=== PATIENT | male | born 1960 | race Caucasian/White ===

== ENCOUNTER 2016-08-21 13:16 | Emergency (ER) | payer MEDICAID ==
--- NOTE | 2016-08-21 14:45 | EDM.PDOC ---
ED HPI GENERAL MEDICAL PROBLEM - General Chief Complaint: Lower Extremity Injury/Pain Stated Complaint: LEFT KNEE PAIN Time Seen by Provider: 08/21/16 14:42 Source of Information: Reports: Patient History Limitations: Reports: No Limitations - History of Present Illness INITIAL COMMENTS - FREE TEXT/NARRATIVE: pt twisted his left knee in [employer] today, Onset: today Duration: Hour(s): Location: Reports: lower extremity, left Associated Symptoms: Reports: denies other symptoms, other (pt is also having pain the lrt knee. ) left knee Pain Score (Numeric/FACES): 9 - Related Data Allergies Allergy/AdvReac Type Severity Reaction Status Date / Time ibuprofen Allergy Hives Verified 06/07/16 14:23 naproxen Allergy Swelling Verified 06/07/16 14:23 venom-honey bee Allergy Anaphylactic Verified 06/07/16 14:23 [bee venom (honey bee)] Shock Home Meds: Home Meds Albuterol [Ventolin HFA] 1 - 2 puff IH Q4H PRN 11/05/15 [History] EPINEPHrine [Epipen 2-Moris] 1 injection IM ASDIRECTED PRN 11/05/15 [History] FLUoxetine HCl [Fluoxetine HCl] 40 mg PO DAILY 11/05/15 [History] Fluticasone/Salmeterol [Advair 100-50 Diskus] 1 puff IH BID PRN 11/05/15 [ History] Gabapentin [Gabapentin] 900 mg PO BID 11/05/15 [History] Lidocaine 5% 1 applic TOP ASDIRECTED 11/05/15 [History] Tamsulosin [Flomax] 0.4 mg PO DAILY 11/05/15 [History] Cholecalciferol (Vitamin D3) [Vitamin D3] 1 tab PO DAILY 06/07/16 [History] buPROPion HCl [Wellbutrin Xl] 1 tab PO DAILY 06/07/16 [History] Past Medical History Respiratory History: Reports: COPD Gastrointestinal History: Reports: GERD, PUD Genitourinary History: Reports: Other (see below) Other Genitourinary History: frequent urination at night without the flomax Musculoskeletal History: Reports: Back pain, chronic, Fracture Neurological History: Reports: Concussion, Head trauma, Vertigo Psychiatric History: Reports: Anxiety, Depression Hematologic History: Reports: Blood transfusion(s) Other Dermatologic History: skin grafts - Infectious Disease History Infectious Disease History: Reports: Chicken pox - Past Surgical History HEENT Surgical History: Reports: Tonsillectomy Neurological Surgical History: Reports: Lumbar spine Other Neurological Surgeries/Procedures: states nerves removed in right lower back Musculoskeletal Surgical History: Reports: Knee replacement Other Musculoskeletal Surgeries/Procedures:: right femur reconstruction, tib/ fib reconstruction (r), left foot- bone graph, pins, plates, Social & Family History - Tobacco Use Smoking Status *Q: Light Tobacco Smoker Years of Tobacco use: 30 Packs/Tins Daily: 0.3 Used Tobacco, but Quit: No Second Hand Smoke Exposure: Yes - Caffeine Use Caffeine Use: Reports: Soda - Alcohol Use Days Per Week of Alcohol Use: 0 - Recreational Drug Use Recreational Drug Use: No Review of Systems - Review of Systems Review Of Systems: See Below Constitutional: Reports: No Symptoms Eyes: Reports: No Symptoms Ears: Reports: No Symptoms Nose: Reports: No Symptoms Mouth/Throat: Reports: No Symptoms Respiratory: Reports: No Symptoms Cardiovascular: Reports: No Symptoms GI/Abdominal: Reports: No Symptoms Musculoskeletal: Reports: Other (pt has new pain in the inner aspect of the left knee. He has not noted swelling. ) Trauma Exam - Physical Exam Exam: See Below Text/Narrative:: Pt was at the grocery store and he twisted his left knee wrong and he developed acute pain in the inner aspect of the left knee. He has had menicus problems with the rt knee. Exam Limited By: No Limitations General Appearance: Reports: Alert, Anxious Head: Reports: Atraumatic Eyes: Bilateral Eye: EOMI, Normal Inspection, PERRL Ears: Reports: Normal External Exam Nose: Reports: Normal Inspection Throat/Mouth: Reports: Normal Inspection Neck: Reports: Non-Tender Respiratory Exam: Reports: No Respiratory Distress Cardiovascular: Reports: Regular Rate, Rhythm GI/Abdominal: Reports: Soft, Non-Tender Extremities: Other (pt has a left knee whuich is painful on the inner aspect. There is no swelling or bruising present. ) Neurologic: Reports: Alert Course - Vital Signs Last Recorded V/S: Last Vital Signs Temp 34.5 C L 08/21/16 13:36 Pulse 80 08/21/16 15:36 Resp 20 08/21/16 15:36 BP 110/79 08/21/16 15:36 Pulse Ox 97 08/21/16 15:36 - Orders/Labs/Meds Orders: Active Orders 24 hr Category Date Time Status Knee Min 4V Lt [CR] Stat Exams 08/21/16 14:39 Taken Acetaminophen [Tylenol Bulk Bottle] Med 08/21/16 15:38 Once 650 mg PO NOW ONE - Re-Assessments/Exams Free Text/Narrative Re-Assessment/Exam: 08/21/16 15:46 xray was obtained which revealed a large bone island in the proximal tibia. This waS INTERPRETED BY THE RADIOLOGIST AND HE FELT THIS LOOKED LIKE A BENIGN BONE ISLAND. tHE PT MAY NEED AN mri IF PAIN IS PERSISTENT. Departure - Departure Time of Disposition: 15:48 Disposition: Home, Self-Care 01 Condition: fair Clinical Impression: Soft tissue injury of knee - Discharge Information Forms: ED Department Discharge Care Plan Goals: XRAYS TO BE SENT TO [facility], -- APPT WITH HIM TOMORROW, ICE TO THE LEFT KNEE, TRAMODOL 50MG Q6H PRN FOR PAIN. - My Orders Last 24 Hours: My Active Orders 08/21/16 14:39 Knee Min 4V Lt [CR] Stat 08/21/16 15:38 Acetaminophen [Tylenol Bulk Bottle] 650 mg PO NOW ONE - Assessment/Plan Last 24 Hours: My Active Orders 08/21/16 14:39 Knee Min 4V Lt [CR] Stat 08/21/16 15:38 Acetaminophen [Tylenol Bulk Bottle] 650 mg PO NOW ONE
[2016-08-21 15:37] VITALS: BP 110/79
[2016-08-21] MEDS ORDERED: Acetaminophen 325 MG Tab, 50 Tab Bulk Bottle PO ONE (15:38)
[2016-08-21] MEDS ORDERED: Acetaminophen 325 MG Tab ONE (15:46)
[2016-08-21] MEDS ORDERED: Acetaminophen 325 MG Tab PO ONE (15:49)
== END 2016-08-21 16:03 | disposition home or self-care (01) ==
LOC: JP.ED 13:16
DX: S89.92XA Unspecified injury of left lower leg, initial encounter (principal); J44.9 Chronic obstructive pulmonary disease, unspecified; K21.9 Gastro-esophageal reflux disease without esophagitis; F41.9 Anxiety disorder, unspecified; F32.9 Major depressive disorder, single episode, unspecified; F17.210 Nicotine dependence, cigarettes, uncomplicated; Z79.899 Other long term (current) drug therapy; Z98.890 Other specified postprocedural states; Z91.030 Bee allergy status; Z88.6 Allergy status to analgesic agent; X50.1XXA Overexertion from prolonged static or awkward postures, initial encounter
CPT/HCPCS: 73564; 99284; A9270

== ENCOUNTER 2017-05-23 15:15 | Emergency (ER) | payer MEDICAID ==
[2017-05-23 16:49] VITALS: BP 105/68
[2017-05-23] MEDS ORDERED: HYDROmorphone 1 MG/ML Syringe IM ONE (17:19)
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
== END 2017-05-23 17:48 | disposition home or self-care (01) ==
LOC: JP.ED 15:15
DX: M54.2 Cervicalgia (principal); Z88.6 Allergy status to analgesic agent; Z88.8 Allergy status to other drugs, medicaments and biological substances; Z91.030 Bee allergy status; J44.9 Chronic obstructive pulmonary disease, unspecified; F32.9 Major depressive disorder, single episode, unspecified; F41.9 Anxiety disorder, unspecified; Z72.0 Tobacco use
CPT/HCPCS: 96372; 99283; J1170

== ENCOUNTER 2017-07-21 07:07 | Emergency (ER) | payer MEDICAID ==
[2017-07-21 07:35] VITALS: BP 125/87
--- NOTE | 2017-07-21 07:46 | EDM.PDOC ---
ED HPI GENERAL MEDICAL PROBLEM - General Chief Complaint: Eye Problems Stated Complaint: CONTACT STUCK IN RIGHT EYE Time Seen by Provider: 07/21/17 07:30 Source of Information: Reports: Patient History Limitations: Reports: No Limitations - History of Present Illness INITIAL COMMENTS - FREE TEXT/NARRATIVE: 57-year-old male with right eye pain for the last several hours after having a contact "stuck" on his right eye. He made several attempts at removing the contact this morning but just couldn't quite get it out. He knows it still in his eye because his vision is clear. Location: Reports: Other (Right eye) Severity: Moderate Right Eye Pain Score (Numeric/FACES): 10 - Related Data Allergies Allergy/AdvReac Type Severity Reaction Status Date / Time ibuprofen Allergy Hives Verified 06/07/16 14:23 naproxen Allergy Swelling Verified 06/07/16 14:23 venom-honey bee Allergy Anaphylactic Verified 06/07/16 14:23 [bee venom (honey bee)] Shock Home Meds: Home Meds Albuterol [Ventolin HFA] 1 - 2 puff IH Q4H PRN 11/05/15 [History] EPINEPHrine [Epipen 2-Moris] 1 injection IM ASDIRECTED PRN 11/05/15 [History] Fluticasone/Salmeterol [Advair 100-50 Diskus] 1 puff IH BID PRN 11/05/15 [ History] Gabapentin 900 mg PO BID 11/05/15 [History] Lidocaine 5% 1 applic TOP ASDIRECTED 11/05/15 [History] Tamsulosin [Flomax] 0.4 mg PO DAILY 11/05/15 [History] Cholecalciferol (Vitamin D3) [Vitamin D3] 1 tab PO DAILY 06/07/16 [History] Diazepam [Valium] 10 mg PO ASDIRECTED PRN 05/23/17 [History] Lisdexamfetamine [Vyvanse] 30 mg PO DAILY 05/23/17 [History] hydrOXYzine Pamoate [Hydroxyzine Pamoate] 50 mg PO ASDIRECTED PRN 05/23/17 [ History] Past Medical History Respiratory History: Reports: COPD Gastrointestinal History: Reports: GERD, PUD Genitourinary History: Reports: Other (See Below) Other Genitourinary History: frequent urination at night without the flomax Musculoskeletal History: Reports: Back Pain, Chronic, Fracture Neurological History: Reports: Concussion, Head Trauma, Vertigo Psychiatric History: Reports: Anxiety, Depression Hematologic History: Reports: Blood Transfusion(s) Other Dermatologic History: skin grafts - Infectious Disease History Infectious Disease History: Reports: Chicken Pox - Past Surgical History HEENT Surgical History: Reports: Tonsillectomy Neurological Surgical History: Reports: Lumbar Spine Musculoskeletal Surgical History: Reports: Knee Replacement Social & Family History - Tobacco Use Smoking Status *Q: Current Every Day Smoker Years of Tobacco use: 30 Packs/Tins Daily: 0.5 Used Tobacco, but Quit: No Second Hand Smoke Exposure: Yes - Caffeine Use Caffeine Use: Reports: Soda - Alcohol Use Days Per Week of Alcohol Use: 0 - Recreational Drug Use Recreational Drug Use: No ED ROS GENERAL - Review of Systems Review Of Systems: See Below Constitutional: Denies: Fever, Chills Respiratory: Denies: Shortness of Breath GI/Abdominal: Denies: Nausea, Vomiting Musculoskeletal: Reports: Other (Going to an orthopedic consult later this morning for chronic leg pain) Neurological: Denies: Headache ED EXAM GENERAL W FULL EYE - Physical Exam Exam: See Below Exam Limited By: No Limitations General Appearance: Alert, Mild Distress (Looks uncomfortable) Eye Exam: Right Eye: Conjunctival Injection (He has marked conjunctival injection of the right eye), Other (Exam of the right eye with fluorescein drops reveals uptake of the conjunctiva but not of the sclera and there appears to be no foreign body), Bilateral Eye: PERRL Eyelids: Right: Edema (Upper and lower eyelid is edematous and erythematous) Conjunctiva & Sclera: Right: Conjunctival Edema Cornea Exam: Right: Normal Appearance Course - Vital Signs Last Recorded V/S: Last Vital Signs Temp 96.3 F 07/21/17 07:29 Pulse 89 07/21/17 07:29 Resp 16 07/21/17 07:29 BP 125/87 07/21/17 07:29 Pulse Ox 99 07/21/17 07:29 - Re-Assessments/Exams Free Text/Narrative Re-Assessment/Exam: 07/21/17 08:05 After fluorescein staining did not show any obvious foreign body, the patient was examined with a slit lamp which again showed no contact on his cornea. He insisted it was there however because his vision was clear, however he had a contact in his left eye and when I covered his left eye his vision was blurry. I do not believe the contact is on the cornea, nor do I believe the contact is under an eyelid. After his orthopedic consultation this morning is going to go see his eye doctor. Departure - Departure Time of Disposition: 07:49 Disposition: Home, Self-Care 01 Condition: Good Clinical Impression: Conjunctivitis Qualifiers: Conjunctivitis type: acute Acute conjunctivitis type: unspecified Laterality: right Qualified Code(s): H10.31 - Unspecified acute conjunctivitis, right eye - Discharge Information Instructions: Eye Foreign Body, [id number] Referrals: Reshma Bobby MD [Primary Care Provider] - Forms: ED Department Discharge Care Plan Goals: Recheck later today with the eye department, you may need some antibiotic drops or other treatment.
== END 2017-07-21 07:49 | disposition home or self-care (01) ==
LOC: JP.ED 07:07
DX: H10.31 Unspecified acute conjunctivitis, right eye (principal); F17.210 Nicotine dependence, cigarettes, uncomplicated; Z88.6 Allergy status to analgesic agent; Z91.030 Bee allergy status; Z79.899 Other long term (current) drug therapy
CPT/HCPCS: 99283

== ENCOUNTER 2017-08-14 21:37 | Emergency (ER) | payer MEDICAID ==
[2017-08-14 22:01] VITALS: BP 136/99
[2017-08-14] MEDS ORDERED: Ketorolac 60 MG/2 ML SDV IM ONE (22:27)
--- NOTE | 2017-08-14 23:07 | EDM.PDOC ---
ED HPI GENERAL MEDICAL PROBLEM - General Chief Complaint: Allergic Reaction Stated Complaint: REACTION TO EPI PEN Time Seen by Provider: 08/14/17 22:15 Source of Information: Reports: Patient History Limitations: Reports: No Limitations - History of Present Illness INITIAL COMMENTS - FREE TEXT/NARRATIVE: 57-year-old male was in with right leg pain after injecting an EpiPen into his right lateral thigh. He thought he "might have gotten stung" so used his EpiPen , and now it feels swollen and sore. Onset: Sudden Duration: Hour(s): (Within the last half hour) Location: Reports: Lower Extremity, Right Severity: Moderate right thigh Pain Score (Numeric/FACES): 10 - Related Data Allergies Allergy/AdvReac Type Severity Reaction Status Date / Time ibuprofen Allergy Hives Verified 08/14/17 22:06 naproxen Allergy Swelling Verified 08/14/17 22:06 venom-honey bee Allergy Anaphylactic Verified 08/14/17 22:06 [bee venom (honey bee)] Shock Home Meds: Home Meds Albuterol [Ventolin HFA] 1 - 2 puff IH Q4H PRN 11/05/15 [History] EPINEPHrine [Epipen 2-Moris] 1 injection IM ASDIRECTED PRN 11/05/15 [History] Fluticasone/Salmeterol [Advair 100-50 Diskus] 1 puff IH BID PRN 11/05/15 [ History] Gabapentin 900 mg PO BID 11/05/15 [History] Lidocaine 5% 1 applic TOP ASDIRECTED 11/05/15 [History] Tamsulosin [Flomax] 0.4 mg PO DAILY 11/05/15 [History] Cholecalciferol (Vitamin D3) [Vitamin D3] 1 tab PO DAILY 06/07/16 [History] Diazepam [Valium] 10 mg PO ASDIRECTED PRN 05/23/17 [History] Lisdexamfetamine [Vyvanse] 30 mg PO DAILY 05/23/17 [History] hydrOXYzine Pamoate [Hydroxyzine Pamoate] 50 mg PO ASDIRECTED PRN 05/23/17 [ History] DULoxetine HCl [Duloxetine HCl] 1 tab PO DAILY 08/14/17 [History] Metoprolol Succinate 1 tab PO DAILY 08/14/17 [History] Past Medical History Cardiovascular History: Reports: High Cholesterol, Hypertension Respiratory History: Reports: COPD Gastrointestinal History: Reports: GERD, PUD Genitourinary History: Reports: Other (See Below) Other Genitourinary History: frequent urination at night without the flomax Musculoskeletal History: Reports: Back Pain, Chronic, Fracture Neurological History: Reports: Concussion, Head Trauma, Vertigo Psychiatric History: Reports: Anxiety, Depression Hematologic History: Reports: Blood Transfusion(s) Other Dermatologic History: skin grafts - Infectious Disease History Infectious Disease History: Reports: Chicken Pox - Past Surgical History HEENT Surgical History: Reports: Tonsillectomy Neurological Surgical History: Reports: Lumbar Spine Musculoskeletal Surgical History: Reports: Knee Replacement Social & Family History - Tobacco Use Smoking Status *Q: Current Every Day Smoker Years of Tobacco use: 40 Packs/Tins Daily: 0.2 Used Tobacco, but Quit: No Second Hand Smoke Exposure: Yes - Caffeine Use Caffeine Use: Reports: Soda - Alcohol Use Days Per Week of Alcohol Use: 0 - Recreational Drug Use Recreational Drug Use: No ED ROS ALLERGIC REACTION - Review of Systems Review Of Systems: See Below Constitutional: Denies: Fever Respiratory: Denies: Shortness of Breath Cardiovascular: Denies: Chest Pain GI/Abdominal: Denies: Nausea, Vomiting Skin: Reports: Erythema ED EXAM GENERAL NO PERIP PULSE - Physical Exam Exam: See Below Exam Limited By: No Limitations General Appearance: Alert, No Apparent Distress, Anxious Respiratory/Chest: No Respiratory Distress, Lungs Clear Cardiovascular: Regular Rate, Rhythm Extremities: Other (Exam of the right leg does show a well-healed surgical scar along the lateral right thigh. There is some firmness to palpation, he may have been caused a muscle cramp from the injection, no significant swelling or fluctuance such as a hematoma.) Course - Vital Signs Last Recorded V/S: Last Vital Signs Temp 96.5 F 08/14/17 22:04 Pulse 53 L 08/14/17 22:04 Resp 16 08/14/17 22:04 BP 136/99 H 08/14/17 22:04 Pulse Ox 97 08/14/17 22:04 - Orders/Labs/Meds Meds: Medications Discontinued Medications Generic Name Dose Route Start Last Admin Trade Name Freq PRN Reason Stop Dose Admin Ketorolac Tromethamine 60 mg 08/14/17 22:27 08/14/17 22:33 Toradol IM 08/14/17 22:28 60 mg ONETIME ONE Administration - Re-Assessments/Exams Free Text/Narrative Re-Assessment/Exam: 08/14/17 23:06 Patient was given 60 mg of Toradol and encouraged to continue wrapping and icing. He ring the appiah several times looking for something stronger for pain. Encouraged him to just let the medicine wear off, increase activity as tolerated and recheck tomorrow if there is still significant swelling or bruising. Departure - Departure Time of Disposition: 23:15 Disposition: Home, Self-Care 01 Condition: Good Clinical Impression: Pain of right lower extremity - Discharge Information Instructions: Muscle Pain, Adult Referrals: Reshma Bobby MD [Primary Care Provider] - Forms: ED Department Discharge Care Plan Goals: Continue with wrapping and icing this evening and increase activity as tolerated. Recheck in the next 1-2 days of significant swelling persists or there is significant bruising.
== END 2017-08-14 23:18 | disposition home or self-care (01) ==
LOC: JP.ED 21:37
DX: M79.651 Pain in right thigh (principal); I10 Essential (primary) hypertension; E78.00 Pure hypercholesterolemia, unspecified; J44.9 Chronic obstructive pulmonary disease, unspecified; F41.9 Anxiety disorder, unspecified; F32.9 Major depressive disorder, single episode, unspecified; F17.210 Nicotine dependence, cigarettes, uncomplicated; Z79.899 Other long term (current) drug therapy; Z88.6 Allergy status to analgesic agent; Z91.030 Bee allergy status; Z88.8 Allergy status to other drugs, medicaments and biological substances
CPT/HCPCS: 96372; 99283; J1885

== ENCOUNTER 2017-08-15 03:57 | Emergency (ER) | payer MEDICAID | END 2017-08-15 04:10 | disposition left against medical advice (07) | LOC: JP.ED 03:57 | DX: Z53.21 Procedure and treatment not carried out due to patient leaving prior to being seen by health care provider (principal) ==

== ENCOUNTER 2017-08-15 13:06 | Emergency (ER) | payer MEDICAID ==
[2017-08-15 13:41] VITALS: BP 141/76
[2017-08-15] MEDS ORDERED: Acetaminophen/oxyCODONE 325-5 MG Tab PO ONE (14:45)
--- NOTE | 2017-08-15 14:47 | EDM.PDOC ---
ED HPI GENERAL MEDICAL PROBLEM - General Chief Complaint: General Stated Complaint: RECHECK FROM BUG BITE 08/14/17 Time Seen by Provider: 08/15/17 14:47 Source of Information: Reports: Patient History Limitations: Reports: No Limitations - History of Present Illness INITIAL COMMENTS - FREE TEXT/NARRATIVE: 2 days ago he was stung by a bee in the rt lateral thigh. The thigh is now quite firm and is very tender. he Had difficulty walking on the leg. Onset: Gradual, Other ( last 2 daYS WORSE TODAY. ) Duration: Hour(s): Location: Reports: Lower Extremity, Right Associated Symptoms: Reports: No Other Symptoms Right Leg Pain Score (Numeric/FACES): 10 - Related Data Allergies Allergy/AdvReac Type Severity Reaction Status Date / Time ibuprofen Allergy Hives Verified 08/15/17 04:04 naproxen Allergy Swelling Verified 08/15/17 04:04 venom-honey bee Allergy Anaphylactic Verified 08/15/17 04:04 [bee venom (honey bee)] Shock Home Meds: Home Meds Albuterol [Ventolin HFA] 1 - 2 puff IH Q4H PRN 11/05/15 [History] EPINEPHrine [Epipen 2-Moris] 1 injection IM ASDIRECTED PRN 11/05/15 [History] Fluticasone/Salmeterol [Advair 100-50 Diskus] 1 puff IH BID PRN 11/05/15 [ History] Gabapentin 900 mg PO BID 11/05/15 [History] Lidocaine 5% 1 applic TOP ASDIRECTED 11/05/15 [History] Tamsulosin [Flomax] 0.4 mg PO DAILY 11/05/15 [History] Cholecalciferol (Vitamin D3) [Vitamin D3] 1 tab PO DAILY 06/07/16 [History] Diazepam [Valium] 10 mg PO ASDIRECTED PRN 05/23/17 [History] Lisdexamfetamine [Vyvanse] 30 mg PO DAILY 05/23/17 [History] hydrOXYzine Pamoate [Hydroxyzine Pamoate] 50 mg PO ASDIRECTED PRN 05/23/17 [ History] DULoxetine HCl [Duloxetine HCl] 1 tab PO DAILY 08/14/17 [History] Metoprolol Succinate 1 tab PO DAILY 08/14/17 [History] Diazepam [Valium] 10 mg PO ASDIRECTED PRN 08/15/17 [History] Past Medical History Cardiovascular History: Reports: High Cholesterol, Hypertension Respiratory History: Reports: COPD Gastrointestinal History: Reports: GERD, PUD Genitourinary History: Reports: Other (See Below) Other Genitourinary History: frequent urination at night without the flomax Musculoskeletal History: Reports: Back Pain, Chronic, Fracture Neurological History: Reports: Concussion, Head Trauma, Vertigo Psychiatric History: Reports: Anxiety, Depression Hematologic History: Reports: Blood Transfusion(s) Other Dermatologic History: skin grafts - Infectious Disease History Infectious Disease History: Reports: Chicken Pox - Past Surgical History HEENT Surgical History: Reports: Tonsillectomy Neurological Surgical History: Reports: Lumbar Spine Musculoskeletal Surgical History: Reports: Knee Replacement Social & Family History - Tobacco Use Smoking Status *Q: Light Tobacco Smoker Years of Tobacco use: 30 Packs/Tins Daily: 0.3 Used Tobacco, but Quit: No Second Hand Smoke Exposure: Yes - Caffeine Use Caffeine Use: Reports: Soda - Alcohol Use Days Per Week of Alcohol Use: 0 - Recreational Drug Use Recreational Drug Use: No ED ROS GENERAL - Review of Systems Review Of Systems: See Below Constitutional: Reports: No Symptoms HEENT: Reports: No Symptoms Respiratory: Reports: No Symptoms Cardiovascular: Reports: No Symptoms Endocrine: Reports: No Symptoms GI/Abdominal: Reports: No Symptoms : Reports: No Symptoms ED EXAM, GENERAL - Physical Exam Exam: See Below Free Text/Narrative:: PT ARRIVED WITH PERSISTENT SWELLING ND PAIN IN THE RT THIGH. iT IS MOST TENDER RT NEAR WHERE HE HAD THE BEE STING. Exam Limited By: No Limitations General Appearance: Alert, Moderate Distress Extremities: Other ( RT THIGH DOES TIMBO VERY FIRM. iT IS NOT RED AND HOT. uS DID LOOK AT THE THIGH TO SEE IF THERE WAS A HMATOMA CLOSE O WHERE HE GOT THE BITE. tHERE WAS A SMALL HEMATOMA CLOSE TO WHERE HE HAD THE SHOT. iT WAS THOUGHT THAT THE SWELLING OR FIRMNESS IS RELATED TO A REACTION TO THE BEE STING. ) Neurological: Alert, Oriented Course - Vital Signs Last Recorded V/S: Last Vital Signs Temp 35.7 C 08/15/17 13:41 Pulse 105 H 08/15/17 13:41 Resp 18 08/15/17 13:41 BP 141/76 H 08/15/17 13:41 Pulse Ox 98 08/15/17 13:41 - Orders/Labs/Meds Orders: Active Orders 24 hr Category Date Time Status Extremity Non Vascular Rt [US] Stat Exams 08/15/17 14:46 Ordered Triamcinolone Acetonide [Kenalog-40] Med 08/15/17 16:03 Once 60 mg INJECT ASDIRECTED ONE Labs: Laboratory Tests 08/15/17 08/15/17 08/15/17 Range/Units 15:03 15:03 15:23 WBC 6.9 (4.5-11.0) K/uL RBC 4.45 (4.30-5.90) M/uL Hgb 12.7 (12.0-15.0) g/dL Hct 37.8 L (40.0-54.0) % MCV 85 (80-98) fL MCH 29 (27-31) pg MCHC 34 (32-36) % Plt Count 266 (150-400) K/uL Neut % (Auto) 63 (36-66) % Lymph % (Auto) 22 L (24-44) % Pope % (Auto) 12 H (2-6) % Eos % (Auto) 3 (2-4) % Baso % (Auto) 0 (0-1) % Sodium 137 L (140-148) mmol/L Potassium 3.7 (3.6-5.2) mmol/L Chloride 102 (100-108) mmol/L Carbon Dioxide 26 (21-32) mmol/L Anion Gap 12.7 (5.0-14.0) mmol/L BUN 22 H (7-18) mg/dL Creatinine 1.3 (0.8-1.3) mg/dL Est Cr Clr Drug Dosing 62.12 mL/min Estimated GFR (MDRD) 57 L (>60) Glucose 93 (74-106) mg/dL Calcium 9.0 (8.5-10.1) mg/dL Total Bilirubin 0.9 (0.2-1.0) mg/dL AST 21 (15-37) U/L ALT 22 (12-78) U/L Alkaline Phosphatase 118 H (46-116) U/L C-Reactive Protein 0.50 H (0.0-0.3) mg/dL Total Protein 6.9 (6.4-8.2) g/dL Albumin 3.8 (3.4-5.0) g/dL Globulin 3.1 (2.3-3.5) g/dL Albumin/Globulin Ratio 1.2 (1.2-2.2) Meds: Medications Discontinued Medications Generic Name Dose Route Start Last Admin Trade Name Temo PRN Reason Stop Dose Admin Oxycodone/Acetaminophen 1 tab 08/15/17 14:45 08/15/17 14:53 Percocet 325-5 Mg PO 08/15/17 14:46 1 tab ONETIME ONE Administration - Re-Assessments/Exams Free Text/Narrative Re-Assessment/Exam: 08/15/17 16:10 pT WAS GIVEN KENALOG 60MG IM TO BLOCK THE SWELLING AND REACTION FROM THE STING. hE HAD NO HEMATOMA THERE FROM THE BEE STING. Departure - Departure Time of Disposition: 16:11 Disposition: Home, Self-Care 01 Condition: Fair Clinical Impression: Swelling at injection site, Bug bite - Discharge Information Referrals: Reshma Rasheed MD [Primary Care Provider] - Forms: ED Department Discharge Care Plan Goals: TUB SOAK ONCE OR TWICE A DAY, USE A COOL PACK, KEEP APPT WITH dR Joe Rasheed WHICH HE ALREADY HAS FOR THURSDAY, [place] 5/325 Q6H #8 - My Orders Last 24 Hours: My Active Orders 08/15/17 14:46 Extremity Non Vascular Rt [US] Stat 08/15/17 16:03 Triamcinolone Acetonide [Kenalog-40] 60 mg INJECT ASDIRECTED ONE - Assessment/Plan Last 24 Hours: My Active Orders 08/15/17 14:46 Extremity Non Vascular Rt [US] Stat 08/15/17 16:03 Triamcinolone Acetonide [Kenalog-40] 60 mg INJECT ASDIRECTED ONE
[2017-08-15] MEDS ORDERED: Triamcinolone Acetonide 40 MG/ML 1 ML MDV INJECT ONE (16:03)
--- NOTE | 2017-08-17 09:05 | US ---
Extremity Non Vascular Rt INDICATION: severe pain in the rt thigh. COMPARISON: None FINDINGS: Ultrasound of the right upper thigh demonstrates a complex masslike area measuring approxim ately 2.6 cm. This appears to be intramuscular and may represent an intramuscular hematoma given clin ical history. Abscess not excluded. Intramuscular mass not excluded. Recommend follow-up exam to conf irm resolution of this finding.
== END 2017-08-15 16:34 | disposition home or self-care (01) ==
LOC: JP.ED 13:06
DX: T63.441A Toxic effect of venom of bees, accidental (unintentional), initial encounter (principal); Z88.6 Allergy status to analgesic agent; Z91.030 Bee allergy status; Z88.8 Allergy status to other drugs, medicaments and biological substances; Z79.899 Other long term (current) drug therapy; I10 Essential (primary) hypertension; E78.00 Pure hypercholesterolemia, unspecified; J44.9 Chronic obstructive pulmonary disease, unspecified; F17.210 Nicotine dependence, cigarettes, uncomplicated; W57.XXXA Bitten or stung by nonvenomous insect and other nonvenomous arthropods, initial encounter
CPT/HCPCS: 36415; 76881; 80053; 85025; 86140; 99284; A9270; J3301

== ENCOUNTER 2017-09-20 05:36 | Emergency (ER) | payer MEDICAID ==
[2017-09-20 05:48] VITALS: BP 152/91
--- NOTE | 2017-09-20 06:14 | EDM.PDOC ---
ED HPI GENERAL MEDICAL PROBLEM - General Chief Complaint: Lower Extremity Injury/Pain Stated Complaint: GROIN PAIN Time Seen by Provider: 09/20/17 06:00 Source of Information: Reports: Patient History Limitations: Reports: No Limitations - History of Present Illness INITIAL COMMENTS - FREE TEXT/NARRATIVE: 57-year-old male developed a bruised area in the right groin that he wants looked at. It's tender but not significantly painful, it's not swollen, he does not know what trauma may have caused it. He is not on anticoagulants. Onset: Sudden (Showed up 2 days ago) Location: Reports: Lower Extremity, Right Severity: Mild Right Leg Pain Score (Numeric/FACES): 10 - Related Data Allergies Allergy/AdvReac Type Severity Reaction Status Date / Time ibuprofen Allergy Hives Verified 09/20/17 05:48 naproxen Allergy Swelling Verified 09/20/17 05:48 venom-honey bee Allergy Anaphylactic Verified 09/20/17 05:48 [bee venom (honey bee)] Shock Home Meds: Home Meds Albuterol [Ventolin HFA] 1 - 2 puff IH Q4H PRN 11/05/15 [History] EPINEPHrine [Epipen 2-Moris] 1 injection IM ASDIRECTED PRN 11/05/15 [History] Fluticasone/Salmeterol [Advair 100-50 Diskus] 1 puff IH BID PRN 11/05/15 [ History] Gabapentin 900 mg PO BID 11/05/15 [History] Lidocaine 5% 1 applic TOP ASDIRECTED 11/05/15 [History] Tamsulosin [Flomax] 0.4 mg PO DAILY 11/05/15 [History] Cholecalciferol (Vitamin D3) [Vitamin D3] 1 tab PO DAILY 06/07/16 [History] Lisdexamfetamine [Vyvanse] 30 mg PO DAILY 05/23/17 [History] hydrOXYzine Pamoate [Hydroxyzine Pamoate] 50 mg PO ASDIRECTED PRN 05/23/17 [ History] DULoxetine HCl [Duloxetine HCl] 1 tab PO DAILY 08/14/17 [History] Metoprolol Succinate 1 tab PO DAILY 08/14/17 [History] Diazepam [Valium] 10 mg PO ASDIRECTED PRN 08/15/17 [History] DULoxetine [Cymbalta] 1 tab PO DAILY 09/20/17 [History] Past Medical History Cardiovascular History: Reports: High Cholesterol, Hypertension Respiratory History: Reports: COPD Gastrointestinal History: Reports: GERD, PUD Genitourinary History: Reports: Other (See Below) Other Genitourinary History: frequent urination at night without the flomax Musculoskeletal History: Reports: Back Pain, Chronic, Fracture Neurological History: Reports: Concussion, Head Trauma, Vertigo Psychiatric History: Reports: Anxiety, Depression Hematologic History: Reports: Blood Transfusion(s) Other Dermatologic History: skin grafts - Infectious Disease History Infectious Disease History: Reports: Chicken Pox - Past Surgical History HEENT Surgical History: Reports: Tonsillectomy Neurological Surgical History: Reports: Lumbar Spine Musculoskeletal Surgical History: Reports: Knee Replacement Social & Family History - Family History Family Medical History: Noncontributory - Tobacco Use Smoking Status *Q: Former Smoker Used Tobacco, but Quit: Yes Month/Year Tobacco Last Used: august - Caffeine Use Caffeine Use: Reports: Soda - Recreational Drug Use Recreational Drug Use: No Review of Systems - Review of Systems Review Of Systems: See Below Constitutional: Denies: Fever Respiratory: Denies: Shortness of Breath Cardiovascular: Denies: Chest Pain GI/Abdominal: Denies: Abdominal Pain Skin: Reports: Bruising ED EXAM, GENERAL - Physical Exam Exam: See Below Exam Limited By: No Limitations General Appearance: Alert, No Apparent Distress Respiratory/Chest: No Respiratory Distress Extremities: Other (Patient has an area of bruising in the right groin approximately 6 x 4 cm. It's moderately tender to palpation but not firm, fluctuant, and appears just to be cutaneous bruising and not a hematoma.) Course - Vital Signs Last Recorded V/S: Last Vital Signs Temp 96.7 F 09/20/17 05:46 Pulse 103 H 09/20/17 05:46 Resp 20 09/20/17 05:46 BP 152/91 H 09/20/17 05:46 Pulse Ox 96 09/20/17 05:46 - Re-Assessments/Exams Free Text/Narrative Re-Assessment/Exam: 09/20/17 06:11 Patient was reassured. If it's worsening he'll have it rechecked. Continue on current medications. Departure - Departure Time of Disposition: 06:19 Disposition: Home, Self-Care 01 Condition: Good Clinical Impression: Spontaneous ecchymosis - Discharge Information Instructions: Contusion, [id number] Referrals: Reshma Bobby MD [Primary Care Provider] - Forms: ED Department Discharge Care Plan Goals: Continue with observation of the area, and activity as tolerated. Recheck in the next 48-72 hours if the area is worsening or becoming more painful.
== END 2017-09-20 06:19 | disposition home or self-care (01) ==
LOC: JP.ED 05:36
DX: S30.1XXA Contusion of abdominal wall, initial encounter (principal); I10 Essential (primary) hypertension; E78.00 Pure hypercholesterolemia, unspecified; J44.9 Chronic obstructive pulmonary disease, unspecified; K21.9 Gastro-esophageal reflux disease without esophagitis; F41.9 Anxiety disorder, unspecified; F32.9 Major depressive disorder, single episode, unspecified; Z87.891 Personal history of nicotine dependence; Z79.899 Other long term (current) drug therapy; Z88.6 Allergy status to analgesic agent; Z91.040 Latex allergy status; Z88.8 Allergy status to other drugs, medicaments and biological substances; X58.XXXA Exposure to other specified factors, initial encounter
CPT/HCPCS: 99283

== ENCOUNTER 2018-01-03 09:37 | Emergency (ER) | payer MEDICAID ==
[2018-01-03] MEDS ORDERED: Proparacaine 0.5% Ophth Soln 15 ML Bottle EYEBOTH STA (10:45)
--- NOTE | 2018-01-03 11:14 | EDM.PDOC ---
ED HPI GENERAL MEDICAL PROBLEM - General Chief Complaint: Eye Problems Stated Complaint: LEFT EYE REDNESS Time Seen by Provider: 01/03/18 10:43 Source of Information: Reports: Patient, RN Notes Reviewed History Limitations: Reports: No Limitations - History of Present Illness INITIAL COMMENTS - FREE TEXT/NARRATIVE: 57-year-old gentleman presents to emergency department white with left thigh pain, he does wear extended wear contacts he states the pain developed over the last 24 hours he has significant tearing and then I with nasal congestion and is unable to complete the eye chart. He denies any exposures to foreign bodies that he is aware of - Related Data Allergies Allergy/AdvReac Type Severity Reaction Status Date / Time ibuprofen Allergy Hives Verified 09/20/17 05:48 naproxen Allergy Swelling Verified 09/20/17 05:48 venom-honey bee Allergy Anaphylactic Verified 09/20/17 05:48 [bee venom (honey bee)] Shock Home Meds: Home Meds Albuterol [Ventolin HFA] 1 - 2 puff IH Q4H PRN 11/05/15 [History] EPINEPHrine [Epipen 2-Moris] 1 injection IM ASDIRECTED PRN 11/05/15 [History] Fluticasone/Salmeterol [Advair 100-50 Diskus] 1 puff IH BID PRN 11/05/15 [ History] Gabapentin 900 mg PO BID 11/05/15 [History] Lidocaine 5% 1 applic TOP ASDIRECTED 11/05/15 [History] Tamsulosin [Flomax] 0.4 mg PO DAILY 11/05/15 [History] Cholecalciferol (Vitamin D3) [Vitamin D3] 1 tab PO DAILY 06/07/16 [History] Lisdexamfetamine [Vyvanse] 30 mg PO DAILY 05/23/17 [History] hydrOXYzine pamoate [Hydroxyzine Pamoate] 50 mg PO ASDIRECTED PRN 05/23/17 [ History] DULoxetine HCl [Duloxetine HCl] 120 mg PO DAILY 08/14/17 [History] Metoprolol Succinate 50 mg PO DAILY 08/14/17 [History] diazePAM [Valium] 10 mg PO ASDIRECTED PRN 08/15/17 [History] Past Medical History Cardiovascular History: Reports: High Cholesterol, Hypertension Respiratory History: Reports: COPD Gastrointestinal History: Reports: GERD, PUD Genitourinary History: Reports: Other (See Below) Other Genitourinary History: frequent urination at night without the flomax Musculoskeletal History: Reports: Back Pain, Chronic, Fracture Neurological History: Reports: Concussion, Head Trauma, Vertigo Psychiatric History: Reports: Anxiety, Depression Hematologic History: Reports: Blood Transfusion(s) Other Dermatologic History: skin grafts - Infectious Disease History Infectious Disease History: Reports: Chicken Pox - Past Surgical History HEENT Surgical History: Reports: Tonsillectomy Neurological Surgical History: Reports: Lumbar Spine Musculoskeletal Surgical History: Reports: Knee Replacement Social & Family History - Family History Family Medical History: Noncontributory - Tobacco Use Smoking Status *Q: Current Every Day Smoker Years of Tobacco use: 25 Packs/Tins Daily: 0.5 - Caffeine Use Caffeine Use: Reports: Soda - Recreational Drug Use Recreational Drug Use: No ED ROS GENERAL - Review of Systems Review Of Systems: See Below Constitutional: Reports: No Symptoms HEENT: Reports: Eye Discharge, Eye Pain Respiratory: Reports: No Symptoms Cardiovascular: Reports: No Symptoms GI/Abdominal: Reports: No Symptoms ED EXAM GENERAL W FULL EYE - Physical Exam Exam: See Below Exam Limited By: No Limitations General Appearance: Alert, Mild Distress Eye Exam: Right Eye: Normal Inspection, Left Eye: Conjunctival Injection, Normal Fundi, Bilateral Eye: EOMI, PERRL With Correction: No IOP (L) in mmH IOP Measure with (Equipment): Tonopen Eyelids: Bilateral: Normal Appearance Conjunctiva & Sclera: Left: Injected Cornea Exam: Left: Normal Appearance Extraocular Movements: Bilateral: Intact Pupils: Normal Accommodation Pupillary Size: Bilateral: 4 mm Pupillary Reaction: Bilateral: Brisk Anterior Chamber: Left: Normal Appearance Posterior Chamber: Left: Normal Funduscopic Respiratory/Chest: No Respiratory Distress Course - Vital Signs Last Recorded V/S: Last Vital Signs Temp 96.3 F 01/03/18 10:07 Pulse 92 01/03/18 11:23 Resp 17 01/03/18 11:23 BP 125/92 H 01/03/18 11:23 Pulse Ox 96 01/03/18 11:23 - Orders/Labs/Meds Meds: Medications Discontinued Medications Generic Name Dose Route Start Last Admin Trade Name Freq PRN Reason Stop Dose Admin Proparacaine HCl 1 ml 01/03/18 10:45 01/03/18 11:03 Proparacaine 0.5% Ophth Soln EYEBOTH 01/03/18 10:46 3 drop NOW STA Administration Departure - Departure Time of Disposition: 11:30 Disposition: DC/Tfer to Acute Hospital 02 Condition: Good Clinical Impression: Eye pain Qualifiers: Laterality: left Qualified Code(s): H57.12 - Ocular pain, left eye - Discharge Information Referrals: Reshma Bobby MD [Primary Care Provider] - Forms: ED Department Discharge Additional Instructions: Please follow-up with Dr. Cote at her eye clinic address is [address] [place] [address] please call herself phone at [phone] when you depart [place] and are in route - Assessment/Plan Plan: Assessment Acuity = acute Site and laterality = left eye pain Etiology = unclear etiology Manifestations = none Location of injury = Home Lab values = none Plan Called discussed case with Dr. Cote ophthalmology at [facility], kindly accepted the patient she will visit with him and examine him in her office as soon as he is transferred reported to [facility] he does have a ride will transport via private vehicle her address is [facility] at [address] [place] [address] her cell phone is [phone] This note was dictated using [employer] voice recognition software please call with any questions on syntax or grammar.
[2018-01-03 11:24] VITALS: BP 125/92
[2018-01-03] MEDS ORDERED: Acetaminophen 325 MG Tab PO ONE (11:42)
== END 2018-01-03 11:49 ==
LOC: JP.ED 09:37
DX: H57.12 Ocular pain, left eye (principal); I10 Essential (primary) hypertension; E78.00 Pure hypercholesterolemia, unspecified; F17.210 Nicotine dependence, cigarettes, uncomplicated; Z88.6 Allergy status to analgesic agent; Z88.8 Allergy status to other drugs, medicaments and biological substances; Z91.030 Bee allergy status; Z79.899 Other long term (current) drug therapy
CPT/HCPCS: 99283; A9270

== ENCOUNTER 2018-10-23 13:50 | Emergency (ER) | payer MEDICAID ==
[2018-10-23 14:15] VITALS: PULSE 103
[2018-10-23 14:21] VITALS: BP 145/83
[2018-10-23] MEDS ORDERED: Acetaminophen/HYDROcodone 325-5 MG Tab PO ONE (14:33)
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
--- NOTE | 2018-10-23 16:33 | CRLCR ---
INDICATION: fall, pain Indication: Fall, pain. Technique: Lumbar spine, three views. Comparison: 12/12/2013. Findings: Mild scoliotic curvature, convex to the right, centered at L3, stable from previous. Dense vascular calcifications. Vertebral body heights and alignment are maintained on the lateral projection. No acute fracture is seen. No lytic or blastic bone lesion by plain film. No soft tissue mass or suspicious calcification. Impression: 1. No acute fracture identified. 2. Stable radiographs when compared with 12/12/2013. Dictated by Fuentes Stahl MD @ 10/23/2018 4:31:24 PM Dictated by: Fuentes Stahl MD @ 10/23/2018 16:31:33 (Electronically Signed)
== END 2018-10-23 16:58 | disposition home or self-care (01) ==
LOC: JP.ED 13:50
DX: M54.5 Low back pain (principal); F10.129 Alcohol abuse with intoxication, unspecified; I10 Essential (primary) hypertension; E78.00 Pure hypercholesterolemia, unspecified; J44.9 Chronic obstructive pulmonary disease, unspecified; F41.9 Anxiety disorder, unspecified; F32.9 Major depressive disorder, single episode, unspecified; F17.210 Nicotine dependence, cigarettes, uncomplicated; Z88.6 Allergy status to analgesic agent; Z79.899 Other long term (current) drug therapy; Z91.030 Bee allergy status; W19.XXXA Unspecified fall, initial encounter
CPT/HCPCS: 72100; 99283; A9270

== ENCOUNTER 2018-10-29 20:26 | Emergency (ER) | payer MEDICAID ==
[2018-10-29 20:54] VITALS: BP 136/81; PULSE 97
--- NOTE | 2018-10-29 21:13 | EDM.PDOC ---
ED HPI GENERAL MEDICAL PROBLEM - General Chief Complaint: Back Pain or Injury Stated Complaint: LOW BACK PAIN Time Seen by Provider: 10/29/18 21:00 Source of Information: Reports: Patient, RN Notes Reviewed History Limitations: Reports: No Limitations - History of Present Illness INITIAL COMMENTS - FREE TEXT/NARRATIVE: 58-year-old gentleman presents emergency department today complaint of low back pain, he states he injured himself while he was bending over to leashes dog, he does have a history of chronic back pain as well as multiple back surgeries denies any loss of bowel or bladder states he is having difficulty ambulating - Related Data Allergies Allergy/AdvReac Type Severity Reaction Status Date / Time ibuprofen Allergy Hives Verified 10/29/18 20:53 ketorolac [From Toradol] Allergy Other Verified 10/29/18 20:53 naproxen Allergy Swelling Verified 10/29/18 20:53 venom-honey bee Allergy Anaphylactic Verified 10/29/18 20:53 [bee venom (honey bee)] Shock Home Meds: Home Meds Albuterol [Ventolin HFA] 1 - 2 puff IH Q4H PRN 11/05/15 [History] EPINEPHrine [Epipen 2-Moris] 1 injection IM ASDIRECTED PRN 11/05/15 [History] Fluticasone/Salmeterol [Advair 100-50 Diskus] 1 puff IH BID PRN 11/05/15 [ History] Tamsulosin [Flomax] 0.4 mg PO DAILY 11/05/15 [History] Cholecalciferol (Vitamin D3) [Vitamin D3] 1 tab PO DAILY 06/07/16 [History] Lisdexamfetamine [Vyvanse] 30 mg PO DAILY 05/23/17 [History] Metoprolol Succinate 50 mg PO DAILY 08/14/17 [History] diazePAM [Valium] 10 mg PO ASDIRECTED PRN 08/15/17 [History] DULoxetine HCl [Duloxetine HCl] 60 mg PO BID 10/29/18 [History] Pregabalin [Lyrica] 150 mg PO BID 10/29/18 [History] Past Medical History Cardiovascular History: Reports: High Cholesterol, Hypertension Respiratory History: Reports: COPD Gastrointestinal History: Reports: GERD, PUD Genitourinary History: Reports: Other (See Below) Other Genitourinary History: frequent urination at night without the flomax Musculoskeletal History: Reports: Back Pain, Chronic, Fracture Neurological History: Reports: Concussion, Head Trauma, Vertigo Psychiatric History: Reports: Anxiety, Depression, Other (See Below) 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 Hematologic History: Reports: Blood Transfusion(s) Dermatologic History: Reports: Other (See Below) Other Dermatologic History: skin grafts - Infectious Disease History Infectious Disease History: Reports: Chicken Pox - Past Surgical History HEENT Surgical History: Reports: Tonsillectomy Neurological Surgical History: Reports: Lumbar Spine Musculoskeletal Surgical History: Reports: Knee Replacement, Other (See Below) Other Musculoskeletal Surgeries/Procedures:: 3 knee surgeries Social & Family History - Family History Family Medical History: Noncontributory - Tobacco Use Smoking Status *Q: Current Every Day Smoker Years of Tobacco use: 30 Packs/Tins Daily: 0.2 - Caffeine Use Caffeine Use: Reports: Soda - Recreational Drug Use Recreational Drug Use: No ED ROS GENERAL - Review of Systems Review Of Systems: See Below Constitutional: Reports: No Symptoms GI/Abdominal: Reports: No Symptoms : Reports: No Symptoms Musculoskeletal: Reports: Back Pain Neurological: Reports: No Symptoms ED EXAM,LOWER BACK PAIN/INJURY - Physical Exam Exam: See Below Exam Limited By: No Limitations General Appearance: Alert, WD/WN, No Apparent Distress Back Exam: Normal Inspection, Decreased Range of Motion, Paraspinal Tenderness. No: CVA Tenderness (R), CVA Tenderness (L), Muscle Spasm, Vertebral Tenderness Course - Vital Signs Last Recorded V/S: Last Vital Signs Temp 98.3 F 10/29/18 20:56 Pulse 97 10/29/18 20:56 Resp 16 10/29/18 20:56 BP 136/81 10/29/18 20:56 Pulse Ox 96 10/29/18 20:56 Departure - Departure Time of Disposition: 21:12 Disposition: Home, Self-Care 01 Condition: Poor Clinical Impression: Low back pain Qualifiers: Chronicity: chronic Back pain laterality: bilateral Sciatica presence: without sciatica Qualified Code(s): M54.5 - Low back pain; G89.29 - Other chronic pain - Discharge Information Referrals: Reshma Bobby MD [Primary Care Provider] - Additional Instructions: Use percocet medication as needed for pain control please follow-up with your primary care on Thursday - Assessment/Plan Plan: Assessment Acuity = acute on chronic Site and laterality = low back pain Etiology = unclear etiology Manifestations = none Location of injury = Home Lab values = none Plan Began recommend that he follow up with his primary care he has not done this from the last visits he fell over the fence, he assures me that he is going to follow up with his primary care on Thursday, prescription written for Percocet 5/ 325 one tablet by mouth 3 times a day when necessary total #15 This note was dictated using [employer] voice recognition software please call with any questions on syntax or grammar.
== END 2018-10-29 21:24 | disposition home or self-care (01) ==
LOC: JP.ED 20:26
DX: G89.29 Other chronic pain (principal); M54.5 Low back pain; E78.00 Pure hypercholesterolemia, unspecified; I10 Essential (primary) hypertension; J44.9 Chronic obstructive pulmonary disease, unspecified; K21.9 Gastro-esophageal reflux disease without esophagitis; F41.9 Anxiety disorder, unspecified; F32.9 Major depressive disorder, single episode, unspecified; F17.210 Nicotine dependence, cigarettes, uncomplicated; Z88.6 Allergy status to analgesic agent; Z91.030 Bee allergy status; Z79.899 Other long term (current) drug therapy
CPT/HCPCS: 99282

== ENCOUNTER 2018-10-31 18:49 | Emergency (ER) | payer MEDICAID ==
[2018-10-31 19:10] VITALS: BP 142/94; PULSE 97
--- NOTE | 2018-10-31 19:26 | EDM.PDOC ---
ED HPI GENERAL MEDICAL PROBLEM - General Chief Complaint: Skin Complaint Stated Complaint: LACERATION ON RT LEG Time Seen by Provider: 10/31/18 19:06 Source of Information: Reports: Patient History Limitations: Reports: No Limitations - History of Present Illness INITIAL COMMENTS - FREE TEXT/NARRATIVE: This man said that 5 days ago he on his right leg on some cassi jimbo wire. He said it opened up his leg and it doesn't want to close. I asked how he is taking care of it he said he's not he's not doing anything to it he's not cleaning it or bandaging it or anything like that. Has not seen a doctor for this. He wants me to close up the wound. He insists that the wound needs to be closed and tells me all about the wounds he had in the past and that the doctor always closed them. - Related Data Allergies Allergy/AdvReac Type Severity Reaction Status Date / Time ibuprofen Allergy Hives Verified 10/31/18 19:10 ketorolac [From Toradol] Allergy Other Verified 10/31/18 19:10 naproxen Allergy Swelling Verified 10/31/18 19:10 venom-honey bee Allergy Anaphylactic Verified 10/31/18 19:10 [bee venom (honey bee)] Shock Home Meds: Home Meds Albuterol [Ventolin HFA] 1 - 2 puff IH Q4H PRN 11/05/15 [History] EPINEPHrine [Epipen 2-Moris] 1 injection IM ASDIRECTED PRN 11/05/15 [History] Fluticasone/Salmeterol [Advair 100-50 Diskus] 1 puff IH BID PRN 11/05/15 [ History] Tamsulosin [Flomax] 0.4 mg PO DAILY 11/05/15 [History] Cholecalciferol (Vitamin D3) [Vitamin D3] 1 tab PO DAILY 06/07/16 [History] Lisdexamfetamine [Vyvanse] 30 mg PO DAILY 05/23/17 [History] Metoprolol Succinate 50 mg PO DAILY 08/14/17 [History] diazePAM [Valium] 10 mg PO ASDIRECTED PRN 08/15/17 [History] DULoxetine HCl [Duloxetine HCl] 60 mg PO BID 10/29/18 [History] Pregabalin [Lyrica] 150 mg PO BID 10/29/18 [History] Past Medical History Cardiovascular History: Reports: High Cholesterol, Hypertension Respiratory History: Reports: COPD Gastrointestinal History: Reports: GERD, PUD Genitourinary History: Reports: Other (See Below) Other Genitourinary History: frequent urination at night without the flomax Musculoskeletal History: Reports: Back Pain, Chronic, Fracture Neurological History: Reports: Concussion, Head Trauma, Vertigo Psychiatric History: Reports: Anxiety, Depression, Other (See Below) 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 Hematologic History: Reports: Blood Transfusion(s) Dermatologic History: Reports: Other (See Below) Other Dermatologic History: skin grafts - Infectious Disease History Infectious Disease History: Reports: Chicken Pox - Past Surgical History HEENT Surgical History: Reports: Tonsillectomy Neurological Surgical History: Reports: Lumbar Spine Musculoskeletal Surgical History: Reports: Knee Replacement, Other (See Below) Other Musculoskeletal Surgeries/Procedures:: 3 knee surgeries Social & Family History - Family History Family Medical History: Noncontributory - Caffeine Use Caffeine Use: Reports: Soda - Recreational Drug Use Recreational Drug Use: No ED ROS GENERAL - Review of Systems Review Of Systems: ROS reveals no pertinent complaints other than HPI. ED EXAM, SKIN/RASH Exam: See Below Exam Limited By: No Limitations General Appearance: Alert, WD/WN Extremities: Other (There is a small laceration to the upper left calf and the left anterior quadrant it's a little bit below and to the left of the level of the tibial tuberosity. It looks like it might be a little bit of a tear consistent with a jimbo wire injury and that there is a little arrowhead shaped flap that is raised. He keeps scraping at it with his fingernail which is appears to be quite dirty. There is no pus draining and I don't see any cellulitis. The wound is open and he's made no attempt to bandage it.) Course - Vital Signs Last Recorded V/S: Last Vital Signs Temp 35.9 C 10/31/18 19:08 Pulse 97 10/31/18 19:08 Resp 20 10/31/18 19:08 BP 142/94 H 10/31/18 19:08 Pulse Ox 97 10/31/18 19:08 - Re-Assessments/Exams Free Text/Narrative Re-Assessment/Exam: 10/31/18 19:49 I discussed with this patient that you cannot close the wound like this right now. The sling is 5 days old he's been poking around at it it's well colonized and it can't be closed. I described it needs to be washed out a couple of times today and bandaged that it probably would eventually close by secondary intention or under a doctor's care it could be closed later by a delayed primary closure. At any rate if it was closed tonight there is a 100% chance that it would get infected and have to be very open. Patient refuses to understand this and believes he is an expert on how to care for something like this. I offered to get him into wound clinic to see Dr. Mahan but he'll have none of that. He says he is going to contact his doctor at [facility] tomorrow and when he sees a real Dr. Stinson he'll get it closed. I told him that in the meantime he needs to wash it out good in the shower once or twice every day and he should follow-up tomorrow with his doctor or else get into wound clinic. And he's also welcome to return to the ER at any time. Departure - Departure Time of Disposition: 19:24 Disposition: Home, Self-Care 01 Condition: Fair Clinical Impression: Laceration of right lower leg - Discharge Information Instructions: Wound Care, Adult Referrals: Reshma Bobby MD [Primary Care Provider] - Forms: ED Department Discharge Additional Instructions: You should follow-up in wound clinic with Dr. Mahan who specializes in wounds like this. Otherwise see your own doctor tomorrow. In the meantime you should wash this wound every day in the shower. Don't put peroxide on it and don 't scrape around in it with your finger. The wound cannot be closed right now without causing a severe infection. It will close by itself eventually if you keep washing it out every day as I described. Or your DrMargoth may do something called a delayed primary closure. At any rate that is not something that can be done in the emergency department. You're welcome to return to the ER at any time.
== END 2018-10-31 19:32 | disposition home or self-care (01) ==
LOC: JP.ED 18:49
DX: S81.811A Laceration without foreign body, right lower leg, initial encounter (principal); E78.00 Pure hypercholesterolemia, unspecified; I10 Essential (primary) hypertension; J44.9 Chronic obstructive pulmonary disease, unspecified; K21.9 Gastro-esophageal reflux disease without esophagitis; Z79.899 Other long term (current) drug therapy; F41.9 Anxiety disorder, unspecified; F32.9 Major depressive disorder, single episode, unspecified; W26.8XXA Contact with other sharp object(s), not elsewhere classified, initial encounter; Z88.8 Allergy status to other drugs, medicaments and biological substances; Z88.5 Allergy status to narcotic agent
CPT/HCPCS: 99282

== ENCOUNTER 2018-11-03 15:38 | Emergency (ER) | payer MEDICAID ==
[2018-11-03 15:47] VITALS: BP 131/74; PULSE 77
--- NOTE | 2018-11-03 16:14 | EDM.PDOC ---
ED HPI GENERAL MEDICAL PROBLEM - General Chief Complaint: Syncope Stated Complaint: MEDICAL [facility]IA [facility] Time Seen by Provider: 11/03/18 15:50 Source of Information: Reports: Patient, Old Records, RN History Limitations: Reports: No Limitations - History of Present Illness INITIAL COMMENTS - FREE TEXT/NARRATIVE: 58 yo male comes to the ER after a syncopal spell that occurred today while meeting his social professionals. Says he was standing when this occurred. Similar episodes have happened in the past but this is the first time he has been seen for it. He does not recall being sweaty with these. He has poor balance in general and has a walker and a cane that he rarely uses. He has had some loose stools lately. No black stools, vomiting, or fever. Came to the ER on the condition that we would just arrange a ride from here to the [facility]. 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 (see below) (none) Lower Back Pain Score (Numeric/FACES): 9 - Related Data Allergies Allergy/AdvReac Type Severity Reaction Status Date / Time ibuprofen Allergy Hives Verified 11/03/18 15:48 ketorolac [From Toradol] Allergy Other Verified 11/03/18 15:48 naproxen Allergy Swelling Verified 11/03/18 15:48 venom-honey bee Allergy Anaphylactic Verified 11/03/18 15:48 [bee venom (honey bee)] Shock Home Meds: Home Meds Albuterol [Ventolin HFA] 1 - 2 puff IH Q4H PRN 11/05/15 [History] EPINEPHrine [Epipen 2-Moris] 1 injection IM ASDIRECTED PRN 11/05/15 [History] Fluticasone/Salmeterol [Advair 100-50 Diskus] 1 puff IH BID PRN 11/05/15 [ History] Tamsulosin [Flomax] 0.4 mg PO DAILY 11/05/15 [History] Cholecalciferol (Vitamin D3) [Vitamin D3] 1 tab PO DAILY 06/07/16 [History] Lisdexamfetamine [Vyvanse] 30 mg PO DAILY 05/23/17 [History] Metoprolol Succinate 50 mg PO DAILY 08/14/17 [History] diazePAM [Valium] 10 mg PO ASDIRECTED PRN 08/15/17 [History] DULoxetine HCl [Duloxetine HCl] 60 mg PO BID 10/29/18 [History] Pregabalin [Lyrica] 150 mg PO BID 10/29/18 [History] Past Medical History Cardiovascular History: Reports: High Cholesterol, Hypertension Respiratory History: Reports: COPD Gastrointestinal History: Reports: GERD, PUD Genitourinary History: Reports: Other (See Below) Other Genitourinary History: frequent urination at night without the flomax Musculoskeletal History: Reports: Back Pain, Chronic, Fracture Neurological History: Reports: Concussion, Head Trauma, Vertigo Psychiatric History: Reports: Anxiety, Depression, Other (See Below) 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 Hematologic History: Reports: Blood Transfusion(s) Dermatologic History: Reports: Other (See Below) Other Dermatologic History: skin grafts - Infectious Disease History Infectious Disease History: Reports: Chicken Pox - Past Surgical History HEENT Surgical History: Reports: Tonsillectomy Neurological Surgical History: Reports: Lumbar Spine Musculoskeletal Surgical History: Reports: Knee Replacement, Other (See Below) Other Musculoskeletal Surgeries/Procedures:: 3 knee surgeries Social & Family History - Family History Family Medical History: Noncontributory - Tobacco Use Smoking Status *Q: Current Every Day Smoker Years of Tobacco use: 40 Packs/Tins Daily: 0.2 - Caffeine Use Caffeine Use: Reports: Soda - Recreational Drug Use Recreational Drug Use: No ED ROS GENERAL - Review of Systems Review Of Systems: See Below Constitutional: Reports: No Symptoms HEENT: Reports: No Symptoms Respiratory: Reports: No Symptoms Cardiovascular: Reports: No Symptoms Endocrine: Reports: No Symptoms GI/Abdominal: Reports: No Symptoms : Reports: No Symptoms Musculoskeletal: Reports: No Symptoms Skin: Reports: No Symptoms Neurological: Reports: Syncope, Gait Disturbance (chronic due to poor balance). Denies: Confusion, Dizziness, Headache, Seizure, Change in Speech - Physical Exam Exam: See Below Exam Limited By: No Limitations General Appearance: Alert, WD/WN, No Apparent Distress Eye Exam: Bilateral Eye: EOMI, PERRL Ears: Normal External Exam, Normal Canal, Hearing Grossly Normal, Normal TMs Nose: Normal Inspection, Normal Mucosa, No Blood Throat/Mouth: Normal Inspection, Normal Lips, Normal Oropharynx, Normal Voice, No Airway Compromise Head Exam: Atraumatic, Normocephalic Neck: Normal Inspection Respiratory/Chest: No Respiratory Distress, Lungs Clear, Normal Breath Sounds, No Accessory Muscle Use Cardiovascular: Regular Rate, Rhythm, No Edema GI/Abdominal: Normal Bowel Sounds, Soft, No Distention, Tender (mild diffuse) Neuro Exam (Abbreviated): Alert, Oriented, CN II-XII Intact, Normal Cognition, No Motor/Sensory Deficits Back Exam: Normal Inspection. No: CVA Tenderness (R), CVA Tenderness (L) Extremities: Normal Inspection, Normal Range of Motion, Non-Tender, No Pedal Edema Psychiatric: Normal Affect, Normal Mood Skin Exam: Warm, Dry, Intact, Normal Color, No Rash Course - Vital Signs Last Recorded V/S: Last Vital Signs Temp 36.3 C 11/03/18 15:43 Pulse 77 11/03/18 15:43 Resp 18 11/03/18 15:43 BP 131/74 11/03/18 15:43 Pulse Ox 97 11/03/18 15:43 - Orders/Labs/Meds Orders: Active Orders 24 hr Category Date Time Status Orthostatic Vital Signs [RC] ASDIRECTED Care 11/03/18 15:59 Active Departure - Departure Time of Disposition: 16:16 Disposition: Against Medical Advice 07 Condition: Fair Clinical Impression: Syncope Qualifiers: Syncope type: unspecified Qualified Code(s): R55 - Syncope and collapse - Discharge Information *PRESCRIPTION DRUG MONITORING PROGRAM REVIEWED*: No *COPY OF PRESCRIPTION DRUG MONITORING REPORT IN PATIENT DECLAN: No Instructions: Syncope, [id number] Referrals: PCP,None [Primary Care Provider] - - My Orders Last 24 Hours: My Active Orders 11/03/18 15:59 Orthostatic Vital Signs [RC] ASDIRECTED - Assessment/Plan Last 24 Hours: My Active Orders 11/03/18 15:59 Orthostatic Vital Signs [RC] ASDIRECTED
== END 2018-11-03 16:19 | disposition left against medical advice (07) ==
LOC: JP.ED 15:38
DX: R55 Syncope and collapse (principal); E78.00 Pure hypercholesterolemia, unspecified; I10 Essential (primary) hypertension; J44.9 Chronic obstructive pulmonary disease, unspecified; K21.9 Gastro-esophageal reflux disease without esophagitis; F41.9 Anxiety disorder, unspecified; F32.9 Major depressive disorder, single episode, unspecified; F17.210 Nicotine dependence, cigarettes, uncomplicated; Z53.20 Procedure and treatment not carried out because of patient's decision for unspecified reasons; Z88.6 Allergy status to analgesic agent; Z91.030 Bee allergy status; Z79.899 Other long term (current) drug therapy
CPT/HCPCS: 99284

== ENCOUNTER 2018-11-04 05:37 | Emergency (ER) | payer MEDICAID ==
[2018-11-04 05:50] VITALS: PULSE 72
[2018-11-04 05:51] VITALS: BP 147/103
--- NOTE | 2018-11-04 06:06 | EDM.PDOC ---
ED HPI GENERAL MEDICAL PROBLEM - General Chief Complaint: Laceration Stated Complaint: FELL CUTTING LEFT HAND Time Seen by Provider: 11/04/18 05:55 Source of Information: Reports: Patient, RN Notes Reviewed History Limitations: Reports: Intoxication - History of Present Illness INITIAL COMMENTS - FREE TEXT/NARRATIVE: 58-year-old gentleman presents to the emergency department today with a laceration to his left hand, he states he injured himself at home he appears to be intoxicated on something complaining of pain in the left wrist left hand Pain Score (Numeric/FACES): 10 - Related Data Allergies Allergy/AdvReac Type Severity Reaction Status Date / Time ibuprofen Allergy Hives Verified 11/04/18 05:39 ketorolac [From Toradol] Allergy Other Verified 11/04/18 05:39 naproxen Allergy Swelling Verified 11/04/18 05:39 venom-honey bee Allergy Anaphylactic Verified 11/04/18 05:39 [bee venom (honey bee)] Shock Home Meds: Home Meds Albuterol [Ventolin HFA] 1 - 2 puff IH Q4H PRN 11/05/15 [History] EPINEPHrine [Epipen 2-Moris] 1 injection IM ASDIRECTED PRN 11/05/15 [History] Fluticasone/Salmeterol [Advair 100-50 Diskus] 1 puff IH BID PRN 11/05/15 [ History] Tamsulosin [Flomax] 0.4 mg PO DAILY 11/05/15 [History] Cholecalciferol (Vitamin D3) [Vitamin D3] 1 tab PO DAILY 06/07/16 [History] Lisdexamfetamine [Vyvanse] 30 mg PO DAILY 05/23/17 [History] Metoprolol Succinate 50 mg PO DAILY 08/14/17 [History] diazePAM [Valium] 10 mg PO ASDIRECTED PRN 08/15/17 [History] DULoxetine HCl [Duloxetine HCl] 60 mg PO BID 10/29/18 [History] Pregabalin [Lyrica] 150 mg PO BID 10/29/18 [History] Past Medical History Cardiovascular History: Reports: High Cholesterol, Hypertension Respiratory History: Reports: COPD Gastrointestinal History: Reports: GERD, PUD Genitourinary History: Reports: Other (See Below) Other Genitourinary History: frequent urination at night without the flomax Musculoskeletal History: Reports: Back Pain, Chronic, Fracture Neurological History: Reports: Concussion, Head Trauma, Vertigo Psychiatric History: Reports: Anxiety, Depression, Other (See Below) 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 Hematologic History: Reports: Blood Transfusion(s) Dermatologic History: Reports: Other (See Below) Other Dermatologic History: skin grafts - Infectious Disease History Infectious Disease History: Reports: Chicken Pox - Past Surgical History HEENT Surgical History: Reports: Tonsillectomy Neurological Surgical History: Reports: Lumbar Spine Musculoskeletal Surgical History: Reports: Knee Replacement, Other (See Below) Other Musculoskeletal Surgeries/Procedures:: 3 knee surgeries Social & Family History - Family History Family Medical History: Noncontributory - Tobacco Use Tobacco Use Comment: smoker - Caffeine Use Caffeine Use: Reports: Soda ED ROS GENERAL - Review of Systems Review Of Systems: See Below Musculoskeletal: Reports: Arm Pain Skin: Reports: Wound ED EXAM, SKIN/RASH Exam: See Below Text/Narrative:: Examination of left hand I do appreciate a laceration and is approximately 1 cm in length this partially through the dermis palmar surface underneath the metacarpal head of digit #2, sensation is intact radial pulses +2 full range of motion of all digits is flexion and extension wrist without Exam Limited By: Intoxication General Appearance: Alert, No Apparent Distress Respiratory/Chest: No Respiratory Distress ED SKIN PROCEDURES - Laceration/Wound Repair Left Hand Lac/Wound length In cm: 1 Appearance: Superficial Distal NVT: Neuro & Vascular Intact, No Tendon Injury Saline Irrigation (cc's): 60 Exploration/Debridement/Repair: Wound Explored, In a Bloodless Field, Explored to Base Closed with: Dermabond Sterile Dressing Applied: None Tetanus Status Addressed: Yes Complications: No Course - Vital Signs Last Recorded V/S: Last Vital Signs Temp 95.8 F 11/04/18 05:51 Pulse 72 11/04/18 05:51 Resp 14 11/04/18 05:51 BP 147/103 H 11/04/18 05:51 Pulse Ox 98 11/04/18 05:51 Departure - Departure Time of Disposition: 06:51 Disposition: Home, Self-Care 01 Condition: Fair Clinical Impression: Laceration of left hand Qualifiers: Encounter type: initial encounter Foreign body presence: without foreign body Qualified Code(s): S61.412A - Laceration without foreign body of left hand, initial encounter - Discharge Information Instructions: Laceration Care, Adult, [id number] Referrals: PCP,None [Primary Care Provider] - Forms: ED Department Discharge Additional Instructions: Please followup with your primary care provider in 5-7 days if not better, please call return to the emergency department with worsening of symptoms. - Assessment/Plan Plan: Assessment Acuity = acute Site and laterality = 1 cm laceration palmar surface left hand Etiology = secondary to a fall Manifestations = none Location of injury = Home Lab values = wrist x-ray I did review films myself I cannot appreciate any acute process, the official read from radiology is pending Plan Was repaired with Dermabond follow-up primary care as needed This note was dictated using [employer] voice recognition software please call with any questions on syntax or grammar.
--- NOTE | 2018-11-04 06:50 | CRLCR ---
Indication: Injury and pain Technique: Left wrist 3 views Comparison: None Findings: Bones: Alignment is normal. No fractures or bone lesions. Joint spaces: Arthritic changes are present in the radiocarpal joint. Soft tissues: Unremarkable. Impression: No sign of acute injury. Dictated by Alex Cardoza MD @ 11/04/2018 6:47:59 AM Dictated by: Alex Cardoza MD @ 11/04/2018 06:48:05 (Electronically Signed)
== END 2018-11-04 07:00 | disposition home or self-care (01) ==
LOC: JP.ED 05:37
DX: S61.412A Laceration without foreign body of left hand, initial encounter (principal); F10.129 Alcohol abuse with intoxication, unspecified; J44.9 Chronic obstructive pulmonary disease, unspecified; E78.00 Pure hypercholesterolemia, unspecified; I10 Essential (primary) hypertension; K21.9 Gastro-esophageal reflux disease without esophagitis; F41.9 Anxiety disorder, unspecified; F32.9 Major depressive disorder, single episode, unspecified; Z88.6 Allergy status to analgesic agent; Z88.5 Allergy status to narcotic agent; Z91.030 Bee allergy status; Z79.899 Other long term (current) drug therapy; W45.8XXA Other foreign body or object entering through skin, initial encounter; S61.412D Laceration without foreign body of left hand, subsequent encounter; F17.210 Nicotine dependence, cigarettes, uncomplicated; X58.XXXD Exposure to other specified factors, subsequent encounter
CPT/HCPCS: 12001; 73110-LT; 99282; 99283-25

== ENCOUNTER 2018-11-04 19:24 | Emergency (ER) | payer MEDICAID ==
[2018-11-04 19:46] VITALS: BP 121/84; PULSE 104
[2018-11-04] MEDS ORDERED: Bacitracin Oint 1 GM U/D Packet TOP ONE (19:56)
--- NOTE | 2018-11-04 20:02 | EDM.PDOC ---
ED HPI GENERAL MEDICAL PROBLEM - General Chief Complaint: Skin Complaint Stated Complaint: LEFT HAND LACERATION RECHECK Time Seen by Provider: 11/04/18 19:50 Source of Information: Reports: Patient, Old Records History Limitations: Reports: No Limitations, Intoxication - History of Present Illness INITIAL COMMENTS - FREE TEXT/NARRATIVE: 58 yo male was seen this am for L palm laceration. He was Dermabonded and now comes back because he has picked all glue off. There is no bleeding. He wants stitches. Onset: Today Onset Date: 11/04/18 Duration: Hour(s): Location: Reports: Upper Extremity, Left Severity: Mild Improves with: Reports: None Worsens with: Reports: None Context: Reports: Other (see HPI) Associated Symptoms: Reports: No Other Symptoms Treatments [employer]: Reports: Other (see below) (none) - Related Data Allergies Allergy/AdvReac Type Severity Reaction Status Date / Time ibuprofen Allergy Hives Verified 11/04/18 05:39 ketorolac [From Toradol] Allergy Other Verified 11/04/18 05:39 naproxen Allergy Swelling Verified 11/04/18 05:39 venom-honey bee Allergy Anaphylactic Verified 11/04/18 05:39 [bee venom (honey bee)] Shock Home Meds: Home Meds Albuterol [Ventolin HFA] 1 - 2 puff IH Q4H PRN 11/05/15 [History] EPINEPHrine [Epipen 2-Moris] 1 injection IM ASDIRECTED PRN 11/05/15 [History] Fluticasone/Salmeterol [Advair 100-50 Diskus] 1 puff IH BID PRN 11/05/15 [ History] Tamsulosin [Flomax] 0.4 mg PO DAILY 11/05/15 [History] Cholecalciferol (Vitamin D3) [Vitamin D3] 1 tab PO DAILY 06/07/16 [History] Lisdexamfetamine [Vyvanse] 30 mg PO DAILY 05/23/17 [History] Metoprolol Succinate 50 mg PO DAILY 08/14/17 [History] diazePAM [Valium] 10 mg PO ASDIRECTED PRN 08/15/17 [History] DULoxetine HCl [Duloxetine HCl] 60 mg PO BID 10/29/18 [History] Pregabalin [Lyrica] 150 mg PO BID 10/29/18 [History] Past Medical History Cardiovascular History: Reports: High Cholesterol, Hypertension Respiratory History: Reports: COPD Gastrointestinal History: Reports: GERD, PUD Genitourinary History: Reports: Other (See Below) Other Genitourinary History: frequent urination at night without the flomax Musculoskeletal History: Reports: Back Pain, Chronic, Fracture Neurological History: Reports: Concussion, Head Trauma, Vertigo Psychiatric History: Reports: Addiction, Anxiety, Depression, Other (See Below) 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 Hematologic History: Reports: Blood Transfusion(s) Dermatologic History: Reports: Other (See Below) Other Dermatologic History: skin grafts - Infectious Disease History Infectious Disease History: Reports: Chicken Pox - Past Surgical History HEENT Surgical History: Reports: Tonsillectomy Neurological Surgical History: Reports: Lumbar Spine Musculoskeletal Surgical History: Reports: Knee Replacement, Other (See Below) Other Musculoskeletal Surgeries/Procedures:: 3 knee surgeries Social & Family History - Family History Family Medical History: Noncontributory - Tobacco Use Smoking Status *Q: Current Every Day Smoker Years of Tobacco use: 40 Packs/Tins Daily: 0.2 Tobacco Use Comment: working on quitting smoking. - Caffeine Use Caffeine Use: Reports: Soda Caffeine Use Comment: daily use - Recreational Drug Use Recreational Drug Use: No ED ROS GENERAL - Review of Systems Review Of Systems: See Below Constitutional: Reports: No Symptoms Skin: Reports: Wound ( approx 2 cm superficial L jean baptiste laceration with no sign of infection or bleeding. CMS intact distally. ) Neurological: Reports: No Symptoms ED EXAM, SKIN/RASH Exam: See Below Exam Limited By: Intoxication General Appearance: Alert, WD/WN, No Apparent Distress Skin: Warm, Dry, Normal Color, No Rash, Wound/Incision Location, Skin: Upper Extremity, Left Characteristics: Linear (superficial and about 2 cm in length, no bleeding or sign of infection. ) Course - Vital Signs Text/Narrative:: New dressing applied per nursing. Last Recorded V/S: Last Vital Signs Temp 36.9 C 11/04/18 19:47 Pulse 104 H 11/04/18 19:47 Resp 18 11/04/18 19:47 BP 121/84 11/04/18 19:47 Pulse Ox 96 11/04/18 19:47 - Orders/Labs/Meds Orders: Active Orders 24 hr Category Date Time Status Bacitracin [Bacitracin Oint 1 GM] Med 11/04/18 19:56 Once 1 dose TOP ONETIME ONE Departure - Departure Time of Disposition: 20:00 Disposition: Home, Self-Care 01 Condition: Good Clinical Impression: Encounter for wound re-check - Discharge Information *PRESCRIPTION DRUG MONITORING PROGRAM REVIEWED*: No *COPY OF PRESCRIPTION DRUG MONITORING REPORT IN PATIENT DECLAN: No (Wash hand with soap and water 2-3 times/day. Dry after each wash. Apply antibiotic ointment and a new dressing. Recheck in the clinic for signs of infection.) Referrals: Reshma Bobby MD [Primary Care Provider] - - My Orders Last 24 Hours: My Active Orders 11/04/18 19:56 Bacitracin [Bacitracin Oint 1 GM] 1 dose TOP ONETIME ONE - Assessment/Plan Last 24 Hours: My Active Orders 11/04/18 19:56 Bacitracin [Bacitracin Oint 1 GM] 1 dose TOP ONETIME ONE
== END 2018-11-04 20:10 | disposition home or self-care (01) ==
LOC: JP.ED 19:24
DX: S61.412D Laceration without foreign body of left hand, subsequent encounter (principal); E78.00 Pure hypercholesterolemia, unspecified; I10 Essential (primary) hypertension; J44.9 Chronic obstructive pulmonary disease, unspecified; F41.9 Anxiety disorder, unspecified; F32.9 Major depressive disorder, single episode, unspecified; F17.210 Nicotine dependence, cigarettes, uncomplicated; Z79.899 Other long term (current) drug therapy; X58.XXXD Exposure to other specified factors, subsequent encounter
CPT/HCPCS: 99282

== ENCOUNTER 2018-11-26 00:56 | Emergency (ER) | payer MEDICAID ==
[2018-11-26 01:32] VITALS: BP 133/82; PULSE 111
--- NOTE | 2018-11-26 01:54 | EDM.PDOC ---
ED HPI GENERAL MEDICAL PROBLEM - General Chief Complaint: General Stated Complaint: VIRTIGO Time Seen by Provider: 11/26/18 01:38 Source of Information: Reports: Patient History Limitations: Reports: No Limitations - History of Present Illness INITIAL COMMENTS - FREE TEXT/NARRATIVE: This patient comes in saying that he has had vertigo for greater than one week. He was on a lot of medications and he quit them for a couple weeks to see if that would help and then he got back on his medications so actually he's been having vertigo for over a month or so. He sees a DrMargoth in [place]. He says he called her earlier in the day and about this she told him to go straight to the ER. He came to the ER however to get some pop from our machine since nothing else was opened nearby but he had the wrong credit card. So he decided to come to the ER instead. He said he doesn't have any trouble walking but if he walks too far all of a sudden he gets dizzy and spinning like he's given pass out and he feels like he's confused. He said he is supposed to have an EEG tomorrow and 1 where the other he'll find a ride to [place]. He has not had a CT or MRI but he said his his doctor said that we didn't have that test available that is needed he said right now he feels fine. He does take diazepam but say he doesn't take it as prescribed he just takes it once a day. He wasn't aware that that is a treatment for vertigo. When I told him that it's frequently used for that he decided that he would just increase the dose of diazepam back to his prescribed dose and he said it was like 3 or 4 tablets per day sure what size tablets were. And he would follow-up with his doctor. - Related Data Allergies Allergy/AdvReac Type Severity Reaction Status Date / Time ibuprofen Allergy Hives Verified 11/26/18 01:28 ketorolac [From Toradol] Allergy Other Verified 11/26/18 01:28 naproxen Allergy Swelling Verified 11/26/18 01:28 venom-honey bee Allergy Anaphylactic Verified 11/26/18 01:28 [bee venom (honey bee)] Shock Home Meds: Home Meds Albuterol [Ventolin HFA] 1 - 2 puff IH Q4H PRN 07/25/16 [History] EPINEPHrine [Epipen 2-Moris] 1 injection IM ASDIRECTED PRN 11/05/15 [History] Fluticasone/Salmeterol [Advair 100-50 Diskus] 1 puff IH DAILY 11/05/15 [History] Tamsulosin [Flomax] 0.4 mg PO DAILY 11/05/15 [History] Cholecalciferol (Vitamin D3) [Vitamin D3] 1 tab PO DAILY 06/07/16 [History] Lisdexamfetamine [Vyvanse] 30 mg PO DAILY 05/23/17 [History] Metoprolol Succinate 50 mg PO DAILY 08/14/17 [History] diazePAM [Valium] 10 mg PO ASDIRECTED PRN 08/15/17 [History] DULoxetine HCl [Duloxetine HCl] 120 mg PO DAILY 10/29/18 [History] Pregabalin [Lyrica] 150 mg PO BID 10/29/18 [History] Past Medical History Cardiovascular History: Reports: High Cholesterol, Hypertension Respiratory History: Reports: COPD Gastrointestinal History: Reports: GERD, PUD Genitourinary History: Reports: Other (See Below) Other Genitourinary History: frequent urination at night without the flomax Musculoskeletal History: Reports: Back Pain, Chronic, Fracture Neurological History: Reports: Concussion, Head Trauma, Vertigo Psychiatric History: Reports: Addiction, Anxiety, Depression, Other (See Below) 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 Hematologic History: Reports: Blood Transfusion(s) Dermatologic History: Reports: Other (See Below) Other Dermatologic History: skin grafts - Infectious Disease History Infectious Disease History: Reports: Chicken Pox - Past Surgical History HEENT Surgical History: Reports: Tonsillectomy Neurological Surgical History: Reports: Lumbar Spine Musculoskeletal Surgical History: Reports: Knee Replacement, Other (See Below) Other Musculoskeletal Surgeries/Procedures:: 3 knee surgeries Social & Family History - Family History Family Medical History: Noncontributory - Tobacco Use Smoking Status *Q: Current Some Day Smoker Years of Tobacco use: 41 Packs/Tins Daily: 1 - Caffeine Use Caffeine Use: Reports: Soda Caffeine Use Comment: daily use - Recreational Drug Use Recreational Drug Use: No ED ROS GENERAL - Review of Systems Review Of Systems: See Below Constitutional: Reports: No Symptoms HEENT: Reports: No Symptoms Respiratory: Reports: No Symptoms Cardiovascular: Reports: No Symptoms Endocrine: Reports: No Symptoms GI/Abdominal: Reports: No Symptoms : Reports: No Symptoms, Urinary Retention Skin: Reports: No Symptoms Neurological: Reports: Dizziness Psychiatric: Reports: No Symptoms ED EXAM, GENERAL - Physical Exam Exam: See Below Exam Limited By: No Limitations General Appearance: Alert, WD/WN, No Apparent Distress Eye Exam: Bilateral Eye: EOMI, PERRL Ears: Other Ear Exam: Bilateral Ear: Auricle Normal Nose: Normal Inspection Throat/Mouth: Normal Oropharynx Head: Atraumatic Neck: Supple Respiratory/Chest: Lungs Clear Cardiovascular: Normal Peripheral Pulses, Regular Rate, Rhythm, No Murmur GI/Abdominal: Non-Tender Neurological: Alert, Oriented, CN II-XII Intact, Normal Cognition, Normal Gait, No Motor/Sensory Deficits Psychiatric: Normal Affect Skin Exam: Warm, Dry Course - Vital Signs Last Recorded V/S: Last Vital Signs Temp 36.2 C 11/26/18 01:31 Pulse 111 H 11/26/18 01:31 Resp 18 11/26/18 01:31 BP 133/82 11/26/18 01:31 Pulse Ox 97 11/26/18 01:31 Departure - Departure Time of Disposition: 01:52 Disposition: Home, Self-Care 01 Condition: Fair Clinical Impression: Dizziness of unknown etiology - Discharge Information Instructions: Dizziness, [id number] Referrals: Reshma Bobby MD [Primary Care Provider] - Forms: ED Department Discharge Additional Instructions: The medication Valium can be effective for vertigo and disequilibrium caused by an ear problem. If you're just taking one tablet a day and it was prescribed for more often than try increasing the dose up to what your told you to take. This can make you sedated so be careful. Follow-up with your doctor for the planned tests. It is understood that you are supposed to get an EEG and you may wind up getting MRI of the brain also.
== END 2018-11-26 01:58 | disposition home or self-care (01) ==
LOC: JP.ED 00:56
DX: R42 Dizziness and giddiness (principal); E78.00 Pure hypercholesterolemia, unspecified; I10 Essential (primary) hypertension; J44.9 Chronic obstructive pulmonary disease, unspecified; K21.9 Gastro-esophageal reflux disease without esophagitis; F41.9 Anxiety disorder, unspecified; F32.9 Major depressive disorder, single episode, unspecified; F17.210 Nicotine dependence, cigarettes, uncomplicated; Z88.6 Allergy status to analgesic agent; Z91.030 Bee allergy status; Z79.899 Other long term (current) drug therapy
CPT/HCPCS: 99283

== ENCOUNTER 2018-11-26 20:21 | Emergency (ER) | payer MEDICAID | END 2018-11-26 20:30 | disposition left against medical advice (07) | LOC: JP.ED 20:21 | DX: Z53.21 Procedure and treatment not carried out due to patient leaving prior to being seen by health care provider (principal) ==